=== PATIENT | female | born 1940 | race Caucasian/White ===

== ENCOUNTER → 2020-06-12 | Outpatient (CLI) | payer MEDICARE, BC ==
--- NOTE | 2020-06-14 20:53 | HM ---
HOLTER MONITOR REPORT 79-year-old female with palpitations. A 24 Holter monitor shows sinus mechanism with PVCs, mostly of 1 single morphology. She has a 60% PVC burden. No nonsustained ventricular tachycardia. Heart rates ranged from 67-94 beats per minute, average 80 beats per minute. KATHLEEN / MARIVEL: [id number] /
== END | disposition home or self-care (01) ==
LOC: RADECHMAIN 12:03
PROVIDERS: ATTEND Internal Medicine
DX: I49.3 Ventricular premature depolarization (principal); I10 Essential (primary) hypertension
CPT/HCPCS: 93225; 93226

== ENCOUNTER → 2020-06-21 | Day surgery (SDC) | payer MEDICARE, BC ==
[2020-06-14 14:20] VITALS: BMI 34.9
[~2020-06-21] MED LIST: SODIUM CHLORIDE 0.9% 1,000 ML IV SCH; SODIUM CHLORIDE 0.9% 500 ML 500 ML IV ONE
[2020-06-21 09:31] LABS: Glucose,Whole Blood 139 mg/dL (75-99)
[2020-06-21 09:33] VITALS: BP 140/62; PULSE 77; RESP 16; TEMP 98.1
--- NOTE | 2020-06-21 12:12 | P.PCN ---
Preoperative Diagnosis: Diagnosis Recurrent presyncope Twelve-lead EKG shows sinus rhythm normal RI narrow QRS normal QT interval Tilt table test Tilt table test per protocol Baseline blood pressure 145/67 mmHg baseline 175 beats a minute Immediate drop in blood pressure down to 109/54 mmHg pulse rate in the 70s Immediate improvement in blood pressure and it remained mostly in the 130s with normal heart rates No syncope No dysautonomia No neurocardiogenic phenomena Impression Normal twelve-lead ECG Mild orthostatic hypotension without any symptoms The patient complained of an "air head" feeling which went away quickly. Her blood pressure was 132/61 mmHg and a heart rate was in the 80s
== END ==
LOC: CATHEP 08:56
PROVIDERS: ATTEND Internal Medicine Clinical Cardiac Electrophysiology
DX: I95.1 Orthostatic hypotension (principal); Z88.1 Allergy status to other antibiotic agents
CPT/HCPCS: 93660

== ENCOUNTER → 2020-10-11 | Day surgery (SDC) | payer MEDICARE, BC ==
[2020-10-08 12:13] VITALS: BMI 34.9
[~2020-10-11] MED LIST changes: +SIMETHICONE 40 MG/0.6 ML DROPS 2,000 MG/30 ML BOTTLE PO ONE; -SODIUM CHLORIDE 0.9% 1,000 ML IV SCH; -SODIUM CHLORIDE 0.9% 500 ML 500 ML IV ONE
[2020-10-11 07:03] VITALS: BP 155/68; PULSE 83; RESP 16; TEMP 96.8
== END ==
LOC: ORWHC2ENDO 06:37
PROVIDERS: ATTEND Internal Medicine Gastroenterology
DX: D50.9 Iron deficiency anemia, unspecified (principal)
CPT/HCPCS: 91110